=== PATIENT | female | born 1965 | race Caucasian/White ===

== ENCOUNTER 2017-05-15 14:32 | Emergency (ER) | payer SELFPAY ==
[~2017-05-15] VITALS: Ht 170.2 cm; Wt 137.3 kg
[2017-05-15 14:36] VITALS: BP 151/95; TEMP 36.2; Ht 170.2 cm; Wt 137.3 kg
--- NOTE | 2017-05-15 15:03 | DIAGNOSTIC IMAGING REPORT ---
R KNEE 3 VIEWS CLINICAL HISTORY: 51 years-old Female presenting with R knee pain. TECHNIQUE: Frontal, lateral, and sunrise views of the right knee were obtained. COMPARISON: None. 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 No advanced degenerative change. No large knee joint effusion. No acute fracture or malalignment. IMPRESSION: No radiographic evidence of acute osseous injury. Electronically signed by: Austin Renner M.D. 05/15/2017 3:02 PM Dictated Date/Time: 05/15/2017 3:00 PM
--- NOTE | 2017-05-15 15:37 | EMERGENCY ROOM VISIT NOTE ---
History First contact with patient: 14:43 Chief Complaint: KNEEPAIN Stated Complaint: RIGHT KNEE PAIN History of Present Illness The patient is a 51 year old female who presents to the Emergency Room with complaints of persistent right knee pain. The patient reports that she woke up day morning, and when she stood up from her bed, reports that her knee collapsed. The patient denies falling directly onto the knee. The patient complains of pain mostly over the front of the knee, and feels like it wants to pop out of place again. The patient denies any pain extending into the thigh or lower leg. She denies any paresthesias or numbness the right lower extremity. The patient denies any prior history of right knee injuries, and rates her discomfort an 8 out of 10. Review of Systems 10 system review was performed and was negative except for pertinent positives and negatives as indicated in history of present illness Past Medical/Surgical History Medical Problems: (1) Hypertension Nos Surgical Problems: (1) History of appendectomy (2) History of cholecystectomy Family History DVT FH: cancer FH: diabetes mellitus FH: gallbladder disease FH: heart disease FH: hypertension FH: kidney disease FH: seizures Social History Smoking Status: Current Every Day Smoker Alcohol Use: occasionally Housing Status: lives with family Occupation Status: employed Current/Historical Medications No Active Prescriptions or Reported Meds Physical Exam Vital Signs Date Time Temp Pulse Resp B/P (MAP) Pulse Ox O2 Delivery O2 Flow Rate FiO2 05/15/17 14:36 36.2 87 20 151/95 96 Room Air Physical Exam CONSTITUTIONAL: Morbidly obese male, alert and oriented X 3 with positive affect. Patient does not appear in any acute distress on exam. HEENT: Normocephalic, atraumatic. Pupils equal, round and reactive. NECK: Full active range of motion without discomfort. RESPIRATORY: Clear to auscultation bilaterally with no wheezing, crackles, rhonchi or stridor. CARDIOVASCULAR: Regular rate and rhythm with no murmurs, rubs or gallops. MUSCULOSKELETAL: Examination of the right knee does not show any obvious soft tissue edema or ecchymosis. She has peripatellar tenderness to palpation with a positive patellar grind test. No obvious joint effusion. Collateral ligaments are intact. Negative anterior drawer, negative posterior drawer. No tenderness to palpation to the hamstrings. Pedal pulses are intact pedal pulses. INTEGUMENTARY: No rash or other significant dermatologic conditions noted. NEUROLOGIC: Right lower extremity is sensory intact. Medical Decision & Procedures ER Provider Diagnostic Interpretation: My interpretation of right knee x-rays does not show any obvious fractures or dislocations. Radiologist report is as follows: R KNEE 3 VIEWS CLINICAL HISTORY: 51 years-old Female presenting with R knee pain. TECHNIQUE: Frontal, lateral, and sunrise views of the right knee were obtained. COMPARISON: None. 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 No advanced degenerative change. No large knee joint effusion. No acute fracture or malalignment. IMPRESSION: No radiographic evidence of acute osseous injury. ED Course Patient history and physical exam were performed. Nurse's notes were reviewed. Vital signs were reviewed and were normal. X-rays of the right knee were normal. History and physical exam are most consistent with a probable patellar subluxation/dislocation with spontaneous reduction. A knee immobilizer was applied. The patient reports that she is currently using her mother's walker at home. She was encouraged to intermittently apply ice to the knee. Ibuprofen and Tylenol in alternating fashion as needed for pain relief. She was encouraged to follow-up with [facility] if symptoms are not improving within the next week. The patient was happy with plan of care, voiced understanding of all discharge instructions, and rated her discomfort a 4 out of 10 at the conclusion of my exam. The patient refused any analgesics while in the emergency department. Medical Decision Medication Reconcilliation Current Medication List: was personally reviewed by me Blood Pressure Screening Patient's blood pressure: Normal blood pressure Impression Primary Impression: Pain of right patella Departure Information Dispostion Home / Self-Care Prescriptions No Active Prescriptions or Reported Meds Referrals Mick Block M.D. Forms HOME CARE DOCUMENTATION FORM, IMPORTANT VISIT INFORMATION Patient Instructions My [facility] App Additional Instructions Ice and elevate knee for swelling and pain. Wear knee immobilizer when up and about. Use your walker as needed for additional relief. Ibuprofen 800 mg and/or Tylenol 1000 mg every 8 hours. You may also alternate these medications for more effective pain relief: Ibuprofen --4 HRS--> Tylenol --4 HRS--> ibuprofen --4 HRS--> Tylenol .... Follow-up with [facility] in 1 week with any persistent symptoms - call for appointment.
[2017-05-15 16:00] VITALS: PULSE 78; O2SAT 98
== END 2017-05-15 15:58 | disposition home or self-care (01) ==
LOC: C.EDB 14:33 → C.EDD 15:58
DX: M25.561 Pain in right knee (principal); I10 Essential (primary) hypertension; Z83.3 Family history of diabetes mellitus; Z82.49 Family history of ischemic heart disease and other diseases of the circulatory system; Z82.0 Family history of epilepsy and other diseases of the nervous system; F17.200 Nicotine dependence, unspecified, uncomplicated